=== PATIENT | female | born 1955 | race Caucasian/White ===

== ENCOUNTER → 2017-05-24 | Day surgery (SDC) | payer OTHER ==
[~2017-05-24] VITALS: Ht 158.8 cm; Wt 113.4 kg
[~2017-05-24] MED LIST: ASCO1TAB12 PO; ASPI-973 PO; Atropine 0.4 mg/mL Inj IVPUSH PRN; CINN500C14 PO; ESOM20CA28 PO; GARL1CAP PO; GLUC500T12 PO; LACT1CAP73 PO; Lactated Ringer's 1,000 ML IV ONE; Lactated Ringer's 1,000 ML IV SCH; METF500T4 PO; MetoCLOpramide 5 mg/mL 2 mL Inj IVPUSH PRN; Ondansetron 2 mg/mL 2 mL Inj IVPUSH PRN; Propofol 10,000 mCg/mL 20 mL Inj ONE; SIMV20TA PO; SITA1TAB6 PO; TELM1TAB2 PO; UBID1CAP52 PO
[2017-05-24 08:49] VITALS: BP 127/68; PULSE 78; RESP 15; O2SAT 98
--- NOTE | 2017-05-24 09:17 | PCM.HPANE ---
Patient Data Date of Service: May 24, 2017 Surgeon Admitting Provider: Attending Provider:Tashi Lagos MD Primary Care Physician:Jose James Other Provider:Rome Hernandez Anesthesia Reason for Visit Bloating Ht/WT & BMI Height (Centimeters): 159 Weight (Kilograms): 113 Body Mass Index 45.0 Allergies Coded Allergies: Sulfa (Sulfonamide Antibiotics) (Verified Allergy, Unknown, 07/08/16) erythromycin base (Verified Allergy, Unknown, 07/08/16) penicillin G (Verified Allergy, Unknown, 07/08/16) ranitidine (Verified Allergy, Unknown, 07/08/16) Past Anesthesia History Anesthesia History: Positive for:: Anesthesia Reactions (difficult breathing during recovery after appy), Denies:: Malignant Hyperthermia Diabetes History Hx Diabetes?: Yes Current Bedside Blood Glucose: 202 MRSA MRSA: No Medications Blood Thinner: Aspirin Last Dose Blood Thinner: May 23, 2017 Home Meds Incl Beta Jo Ann: Yes Date Beta Jo Ann Taken: May 23, 2017 Time Beta Jo Ann Taken: 2129 Reported Medications Metformin 500 Mg Tablet1,000 Mg PO BID Ref 0 05/24/17 Simvastatin (Zocor)20 Mg Trydtp99 Mg PO HS 30 Days Ref 0 07/08/16 Telmisartan/HCTZ 40-12.5 mg (Micardis HCT 40-12.5 mg)1 Each Tablet1 Tablet PO DAILY 07/08/16 Sitagliptin/Metformin 50-1000 mg (Janumet 50-1000 mg)1 Each Tablet1 Tablet PO BIDWM 07/08/16 Glucosamine 500 Mg Arjevg402 Mg PO DAILY 07/08/16 Ubidecarenone/Vit E Acetate (Co Q-10 100 mg Softgel)1 Each Capsule1 Each PO DAILY 07/08/16 Cinnamon Bark (Cinnamon)500 Mg Tpbruoh491 Mg PO DAILY 07/08/16 Aspirin 81 Mg Bbekkh63 Mg PO DAILY Ref 0 07/08/16 Discontinued Reported Medications Lactobacillus Combo No.11 (Probiotic)1 Each Cap.sprink1 Each PO DAILY 07/08/16 Esomeprazole Magnesium (Nexium)20 Mg Capsule.dr20 Mg PO DAILY Ref 0 07/08/16 Garlic 1 Mg Capsule1 Mg PO DAILY 07/08/16 Ascorbate Calcium/Bioflavonoid (Pilar-C 500 mg Tablet)1 Each Tablet1 Each PO DAILY 07/08/16 History History of ENT Problems?: No HEENT History: Denies:: Abnormal Airway Denture Type: None Teeth Condition: Within Normal Limits Hx of Heart Problems?: No Cardiovascular History: Positive for:: Hypertension Irregular Heartbeat (intermittent) Denies:: Atrial Fibrillation Hx of Respiratory Problem?: Yes Respiratory History: Positive for:: Asthma (child) Use of C-PAP Machine Hx Neurologic Problems?: No Hx of GI Problems?: Yes (bloating) Hx of Problems?: No HX of Peritoneal Dialysis: No Female Hx: Denies:: Currently Hx Musculoskeletal Problems?: Yes Hx of Psycho/Social Problems?: Yes Psycho Social History: Positive for:: Anxiety Hx Surgeries?: Yes (appy, bry, cyst in hand) Hx Any Other Health Problems?: Yes Hx Alcohol Use: Yes (occasionaly)Hx Substance Use: NoHave You Smoked inLast 12 mo: No Stop/Bang Treated for Sleep Apnea?: Yes Do You Have a CPAP Machine?: Yes HOLLEY Risk Assessment: High Risk, =/>3 Yes HOLLEY Category 4 OutPt Procedure: Yes Risk Assessment Category Category 1A: Patient has history of documented sleep apnea, and HAS NOT received any narcotic, sedative or anesthesia administration during this stay. Category 1B: Patient has history of documented sleep apnea, and HAS received any narcotic , sedative or anesthesia administration during this stay Category 2: Patient has SUSPECTED Obstructive Sleep Apnea, and HAS received any narcotic , sedative or anesthesia administration during this stay. Category 3: Patient has SUSPECTED Obstructive Sleep Apnea and HAS NOT received narcotic, sedative or anesthesia administration during this stay. Category 4: Outpatient in Procedural Areas with known sleep apnea or who screen positive for High Risk via the STOP/BANG questionnaire. Exam Exam Vital Signs Vital Signs Date Time Temp Pulse Resp B/P Pulse Ox O2 Delivery O2 Flow Rate FiO2 05/24/17 08:49 36.4 78 15 127/68 98 Room Air General Appearance: Alert, Oriented X3, Cooperative HEENT/AIRWAY: MP 2, Neck Movement (Full, thick), Mouth Opening (de) Lungs: Clear to Auscultation, Normal Air Movement Heart: Regular Rate/Rhythm, Normal S1, Normal S2 Meds/Labs/Diagnostics Bedside Blood Glucose: 202 Plan Impression Patient chart reviewed, patient interviewed and anesthestic plan with risks, benefits, and alternatives discussed, and informed consent obtained. NPO per Anesth. Guidelines: Yes ASA Physical Status: ASA3 Severe Disease Anesthetic Plan: MAC Bene/Risks/Altern/Consents: Yes HP Complete Prior to Induction: Yes Roberto Jade MD May 24, 2017 09:03
[2017-05-24 09:55] VITALS: BP 119/64; PULSE 72; RESP 14; O2SAT 99
--- NOTE | 2017-05-24 09:59 | PCM.ANEP1 ---
Post Anesthesia PACU Phase 1 Assessment Date of Service: May 24, 2017 Vital Signs Vital Signs Date Time Temp Pulse Resp B/P Pulse Ox O2 Delivery O2 Flow Rate FiO2 05/24/17 09:55 72 14 119/64 99 Room Air 05/24/17 08:49 36.4 78 15 127/68 98 Room Air Anesthetic Administered: MAC Level of Alertness: Sleepy, easy to arouse HOSKINS's with Equal Strength: Yes Pain: No Nausea or Vomiting: No CV Function & Hydration Stable: Yes Airway Device: Lungs: Clear to Auscultation, Normal Air Movement PACU Phase 2 Assessment Complications: No Follow up Care: N/A Patient Instructions Provided: N/A Roberto Jade MD May 24, 2017 09:59
[2017-05-24 10:03] VITALS: PULSE 108
[2017-05-24 10:13] VITALS: BP 107/63; PULSE 70; RESP 14; O2SAT 99
--- NOTE | 2017-05-24 10:30 | ENDO ---
[address] [address] ENDOSCOPY PROCEDURE PATIENT: GLORIA BROWNE I : 1955 MR#: [id number] ADMIT: 05/24/2017 JOB ID: [id number] DATE: 05/24/2017 PROCEDURE: Esophagogastroduodenoscopy with biopsies. INDICATIONS: This is a 61-year-old female with symptoms of bloating. Symptoms persist and endoscopic interrogation is pursued. The patient is currently off Nexium at present. EQUIPMENT: GIF H 180 J. SEDATION: Monitored anesthesia as provided by Dr. Roberto Jade. COMPLICATIONS: None identified. PROCEDURAL INFORMATION: After the risks and benefits were explained, written and verbal informed consent was obtained. The patient was brought into the endoscopy suite and placed into the left lateral decubitus position. Sedation was achieved as above. The scope was introduced into the mouth through the bite block, and advanced under direct visualization to the second portion of the duodenum. The scope was slowly withdrawn to carefully examine the mucosa for any defects or lesions. Retroflexed views were accomplished in the stomach. The stomach was decompressed. The scope removed from the patient who tolerated the procedure reasonably well. Before she had awakened from sedation, I had mentioned to the patient that I would pursue a rectal examination to exclude any element of fecal impaction as part of the patient's complaints had been loose watery bowel movements. Rectal examination was accomplished and did not disclose any significant pathology and certainly no rectal fecal impaction. FINDINGS: 1. Duodenum: No pathology appreciated from the bulb through to the second portion. Mucosa was subtly erythematous. Random biopsies from D2 were taken to correlate with the negative celiac serology. 2. Stomach: No outlet obstruction. No mass lesions. No ulcers. Mild diffuse gastropathy was seen and random biopsy was taken for exclusion of Helicobacter or any other underlying pathology. Difficult to actually view the LES in retroflexed position based on the configuration of the stomach. In retroflexion, no pathology appreciated. 3. Esophagus: The squamocolumnar junction correlated with the top of the gastric folds. The GEJ was at 39 cm from the incisors. No acute erosive changes. No strictures. No mass lesions. The remainder of the esophagus appeared normal as well. ENDOSCOPIC DIAGNOSIS: 1. Gastroduodenopathy. 2. Otherwise visually unremarkable esophagogastroduodenoscopy. RECOMMENDATIONS: 1. Await histopathology. 2. The patient is encouraged to initiate fiber supplementation with soaked Benigno and dilute ground flaxseed. 3. Followup on clinical results in my office in the next four weeks.
--- NOTE | 2017-05-25 11:08 | PATH ---
SURGICAL PATHOLOGY Attending Physician:Larissa Nguyen CASE STATUS: Signed Out PATIENT NAME: GLORIA BROWNE PID: [id number] : 1955 DATE COLLECTED:05/24/2017 16:32 SPECIMEN: 1: Duodenum, Biopsy 2: Gastric, Biopsy CLINICAL HISTORY: 1). DUODENAL BIOPSY 2). GASTRIC BIOPSY (RULE OUT H.PYLORI) FINAL DIAGNOSIS: 1.DUODENAL BIOPSY: SUPERFICIAL FRAGMENTS OF NORMAL-APPEARING SMALL BOWEL MUCOSA. Normal delicate mucosal villi present. Negative for significant inflammation, dysplasia and malignancy. 2.GASTRIC BIOPSY: MILD CHRONIC GASTRITIS INVOLVING FUNDIC MUCOSA. Negative for evidence of Helicobacter on H&E stain. Negative for intestinal metaplasia. Negative for dysplasia and malignancy. ICD10 K29.70 GROSS DESCRIPTION: The specimen is received in two formalin filled containers labeled with the patient's name. 1). The specimen is labeled "duodenum" and consists of 2 portions of tissue which aggregate to 0.3 x 0.2 x 0.2 CM. The specimen is entirely submitted in cassette 1A. 2). The specimen is labeled "gastric" and consists of a 0.4 x 0.3 x 0.3 CM portion of tissue which is entirely submitted in cassette 2A. 05/24/2017DC MICRO DESCRIPTION: See diagnosis. ICD-9 CODES: CPT CODES: 1: 82884 2: 98353 Electronically Signed Out Tashi Price MD [facility] [address], [place] [address] Technical component performed at [facility], [address] [place] [address] Ave[address], [place], [address]
== END | disposition home or self-care (01) ==
LOC: END 05-07 12:53
PROVIDERS: ATTEND Internal Medicine Gastroenterology
DX: K29.50 Unspecified chronic gastritis without bleeding (principal); R14.0 Abdominal distension (gaseous); E11.9 Type 2 diabetes mellitus without complications; I10 Essential (primary) hypertension; J45.909 Unspecified asthma, uncomplicated; F41.9 Anxiety disorder, unspecified; Z79.82 Long term (current) use of aspirin; Z79.84 Long term (current) use of oral hypoglycemic drugs; Z79.899 Other long term (current) drug therapy; Z88.0 Allergy status to penicillin; Z88.1 Allergy status to other antibiotic agents; Z88.2 Allergy status to sulfonamides; Z88.8 Allergy status to other drugs, medicaments and biological substances
CPT/HCPCS: 43239; J7120